=== PATIENT | female | born 2000 | race Caucasian/White ===

== ENCOUNTER 2023-07-03 18:07 | Emergency (ER) | payer OTHER ==
[~2023-07-03] VITALS: Ht 162.6 cm; Wt 49.5 kg
[2023-07-05 20:37] VITALS: BP 122/66; PULSE 73; TEMP 98.1
== END 2023-07-03 19:00 | disposition home or self-care (01) ==
LOC: COL.ER 18:07
DX: T18.108A Unspecified foreign body in esophagus causing other injury, initial encounter (principal); W44.9XXA Unspecified foreign body entering into or through a natural orifice, initial encounter